=== PATIENT | female | born 1980 | race Hispanic/Latino ===

== ENCOUNTER 2018-11-19 20:08 | Emergency (ER) | payer SELFPAY ==
[~2018-11-19] VITALS: Ht 162.6 cm; Wt 63.6 kg
[2018-11-19] MEDS ORDERED: BENA25CA4 PO (20:18)
[2018-11-19] MEDS ORDERED: LORATADINE 10 MG TAB PO ONE (22:45)
[2018-11-19] MEDS ORDERED: predniSONE 20 MG TAB PO ONE (22:45)
[2018-11-19 22:50] VITALS: BP 115/75
[2018-11-19] MEDS ORDERED: PRED20TA PO (22:50)
[2018-11-19] MEDS ORDERED: HYDR25OIN TOP (22:50)
[2018-11-19] MEDS ORDERED: CLAR10CA3 PO (22:50)
== END 2018-11-19 23:06 | disposition home or self-care (01) ==
LOC: M ED 20:08
DX: L30.9 Dermatitis, unspecified (principal); J45.909 Unspecified asthma, uncomplicated; Z79.899 Other long term (current) drug therapy; Z88.8 Allergy status to other drugs, medicaments and biological substances